=== PATIENT | female | born 1985 | race Caucasian/White ===

== ENCOUNTER 2020-11-17 22:59 | Emergency (ER) | payer SELFPAY ==
--- NOTE | 2020-11-17 23:30 | NUR ---
PATIENT CALL TO TRIAGE , NO RESPONSE PATIENT LEFT WITHOUT BEING SEEN BY DR. CASTREJON. NO FURTHER CARE PROVIDED FOR PATIENT.
--- NOTE | 2020-11-17 23:35 | NUR ---
CALLED FOR THE SECOND TIME , NO RESPONSE
--- NOTE | 2020-11-17 23:44 | NUR ---
CALLED FOR THE THIRD TIME NO RESPONSE
== END 2020-11-17 23:30 | disposition left against medical advice (07) ==
LOC: MED 22:59
DX: Z53.21 Procedure and treatment not carried out due to patient leaving prior to being seen by health care provider (principal)